=== PATIENT | female | born 1990 | race African-American/Black ===

== ENCOUNTER 2017-03-30 03:00 | Emergency (ER) | payer SELFPAY ==
--- NOTE | 2017-03-30 03:45 | ER Document Report ---
ED General - General Mode of Arrival: Medic Information source: Patient TRAVEL OUTSIDE OF THE [place] IN LAST 30 DAYS: No - HPI Onset: Just prior to arrival - Refer to HPI notes <GILBERTO LANGE - Last Filed: 03/30/17 04:46> <EDMAR GRAHAM - Last Filed: 03/30/17 06:12> - General Chief Complaint: Feet Swelling Stated Complaint: PAIN AND SWELLING IN FEET Notes: Patient is a 27-year-old female presenting to the emergency department for bilateral lower extremity swelling and difficulty ambulating. Patient states that she woke up in the that she had some swelling to her feet and ankles bilaterally and patient states she had difficulty ambulating. Patient was brought in via EMS with a wheelchair and has been drinking alcohol tonight. Patient has a history of diabetes mellitus and hypertension and is an every day smoker. Patient's PCP is [facility]. (GILBERTO LANGE) - Related Data Allergies/Adverse Reactions: No Known Allergies Allergy (Verified 03/30/17 04:48) Past Medical History - General Information source: Patient - Social History Smoking Status: Current Every Day Smoker Frequency of alcohol use: Social Family History: Hyperlipidemia, Hypertension, Malignancy, Thyroid Disfunction Patient has suicidal ideation: No Patient has homicidal ideation: No Pulmonary Medical History: Reports: Hx Asthma Psychiatric Medical History: Reports: Hx Anxiety Surgical Hx: Negative - Immunizations Immunizations up to date: Yes Hx Diphtheria, Pertussis, Tetanus Vaccination: Yes <GILBERTO LANGE - Last Filed: 03/30/17 04:46> Review of Systems - Review of Systems Constitutional: No symptoms reported EENT: No symptoms reported Cardiovascular: No symptoms reported Respiratory: No symptoms reported Gastrointestinal: No symptoms reported Genitourinary: No symptoms reported Female Genitourinary: No symptoms reported Musculoskeletal: See HPI Skin: No symptoms reported Hematologic/Lymphatic: No symptoms reported Neurological/Psychological: No symptoms reported -: Yes All other systems reviewed and negative <GILBERTO LANGE - Last Filed: 03/30/17 04:46> Physical Exam - Vital signs Interpretation: Normal <GILBERTO LANGE - Last Filed: 03/30/17 04:46> <EDMAR GRAHAM - Last Filed: 03/30/17 06:12> - Vital signs Vitals: Temp Pulse Resp BP Pulse Ox 98.4 F 74 20 133/80 H 99 03/30/17 03:17 03/30/17 03:17 03/30/17 03:17 03/30/17 03:17 03/30/17 03:17 - Notes Notes: GENERAL: Alert, interacts well, intoxicated. No acute distress. HEAD: Normocephalic, atraumatic. EYES: Appear normal. Pupils equal, round, and reactive to light. ENT: Moist mucus membranes, tongue midline. NECK: Full range of motion. Supple. Trachea midline. LUNGS: Clear to auscultation bilaterally, no wheezes, rales, or rhonchi. No respiratory distress. HEART: Regular rate and rhythm. No murmurs, gallops, or rubs. ABDOMEN: Soft, non-tender. Non-distended. Normal bowel sounds. EXTREMITIES: Moves all 4 extremities spontaneously. Normal strength. Peripheral edema bilaterally, pitting edema from the anterior tibial surface extending to the knee bilaterally but more so on the left than the right. NEUROLOGICAL: Alert and oriented x3. Normal speech. No focal neurological deficits. GSC 15. PSYCH: Normal affect, normal mood. SKIN: Warm, dry, normal turgor. No rashes or lesions noted. (GILBERTO LANGE) Course - Laboratory Result Diagrams: 03/30/17 04:20 03/30/17 04:20 <GILBERTO LANGE - Last Filed: 03/30/17 04:46> - Laboratory Result Diagrams: 03/30/17 04:20 03/30/17 04:20 <EDMAR GRAHAM - Last Filed: 03/30/17 06:12> - Vital Signs Vital signs: Temp Pulse Resp BP Pulse Ox 98.4 F 74 20 133/80 H 99 03/30/17 03:17 03/30/17 03:17 03/30/17 03:17 03/30/17 03:17 03/30/17 03:17 - Laboratory Laboratory results interpreted by me: 03/30/17 03/30/17 04:20 04:20 Hgb 11.9 L Hct 35.3 L RDW 15.6 H Chloride 109 H BUN 6 L Albumin 3.4 L Discharge <GILBERTO LANGE - Last Filed: 03/30/17 04:46> <EDMAR GRAHAM - Last Filed: 03/30/17 06:12> - Discharge Clinical Impression: Peripheral edema Condition: Stable Disposition: HOME, SELF-CARE Additional Instructions: Edema, Peripheral: You have swelling in your legs. This is called peripheral edema. It can be caused by "leaky capillaries," inflammation, disease of the leg veins, or excess salt and water in your body. Edema may be a sign of heart, kidney, or liver disease. A medical evaluation can determine if there is a serious underlying cause for your edema. Avoid prolonged standing. If you must sit for a long time, occasionally get up and walk around or elevate your legs. Support stockings can be helpful in limiting swelling. Often diuretic or water pills are used to remove excess salt and water from your body. Call the doctor or return if you develop increased swelling, pain, or redness, shortness of breath, chest pain, or any other significant change. TAKE THE MEDICATION PRESCRIBED. INCREASE POTASSIUM IN YOUR DIET WHILE TAKING THE FLUID PILLS. REDUCE SALT AND SODIUM IN YOUR DIET. ELEVATE YOUR FEET ALL THE TIME. FOLLOW UP WITH YOUR DOCTOR NEXT WEEK FOR RECHECK. RETURN TO THE EMERGENCY ROOM IF ANY NEW OR WORSENING SYMPTOMS. Prescriptions: Hydrochlorothiazide 25 mg PO DAILY #5 tablet Scribe Attestation: 03/30/17 06:11 I personally performed the services described in the documentation, reviewed and edited the documentation which was dictated to the scribe in my presence, and it accurately records my words and actions. (EDMAR GRAHAM) Scribe Documentation - Scribe Written by Trevor:: Trevor Amaro, 03/30/2017 4:50 acting as scribe for :: Danika <GILBERTO LANGE - Last Filed: 03/30/17 04:46>
[2017-03-30 04:36] LABS: ABSOLUTE EOSINOPHILS # (AUTO) 0.2 10^3/uL (0.0-0.6); ABSOLUTE LYMPHOCYTES (AUTO) 2.4 10^3/uL (0.5-4.7); ABSOLUTE MONOCYTES (AUTO) 0.5 10^3/uL (0.1-1.4); BASOPHILS % (AUTO) 0.8 % (0-2); EOSINOPHILS % (AUTO) 3.1 % (0-6); HEMATOCRIT 35.3 % (36.0-47.0); HEMOGLOBIN 11.9 g/dL (12.0-15.5); HGB HCT DIFFERENCE 0.4; LYMPHOCYTES % (AUTO) 38.7 % (13-45); MEAN CORPUSCULAR HEMOGLOBIN 29.5 pg (27.0-33.4); MEAN CORPUSCULAR HGB CONC 33.8 g/dL (32.0-36.0); MEAN CORPUSCULAR VOLUME 87 fl (80-97); MONOCYTES % (AUTO) 8.6 % (3-13); RED BLOOD COUNT 4.03 10^6/uL (3.72-5.28); RED CELL DISTRIBUTION WIDTH 15.6 % (11.5-14.0); SEGMENTED NEUTROPHILS % (AUTO) 48.8 % (42-78); WHITE BLOOD COUNT 6.1 10^3/uL (4.0-10.5)
[2017-03-30 04:49] LABS: ALANINE AMINOTRANSFERASE 32 U/L (9-52); ALBUMIN 3.4 g/dL (3.5-5.0); ALCOHOL 53 mg/dL (NONE DETECTED); ALKALINE PHOSPHATASE 50 U/L (38-126); ANION GAP 8 (5-19); ASPARTATE AMINO TRANSFERASE 24 U/L (14-36); BILIRUBIN,DIRECT 0.3 mg/dL (0.0-0.4); BILIRUBIN,TOTAL 0.3 mg/dL (0.2-1.3); BLOOD UREA NITROGEN 6 mg/dL (7-20); CALCIUM 8.4 mg/dL (8.4-10.2); CARBON DIOXIDE 24 mmol/L (22-30); CHLORIDE 109 mmol/L (98-107); CREATININE RESULT 0.73 mg/dL (0.52-1.25); GLUCOSE 86 mg/dL (75-110); POTASSIUM 3.6 mmol/L (3.6-5.0); SODIUM 140.6 mmol/L (137-145); TOTAL PROTEIN 6.6 g/dL (6.3-8.2)
[2017-03-30 05:07] LABS: APPEARANCE,URINE CLEAR; BILIRUBIN,URINE NEGATIVE (NEGATIVE); GLUCOSE, URINE NEGATIVE (NEGATIVE); KETONES,URINE NEGATIVE (NEGATIVE); LEUKOCYTE ESTERASE,URINE NEGATIVE (NEGATIVE); NITRITE,URINE NEGATIVE (NEGATIVE); PROTEIN,URINE NEGATIVE (NEGATIVE); URINE SPECIFIC GRAVITY 1.008; UROBILINOGEN,URINE NEGATIVE mg/dL (<2.0)
[2017-03-30 05:20] LABS: URINE BARBITURATES SCREEN NEGATIVE; URINE METHADONE SCREEN NEGATIVE; URINE OPIATES LOW NEGATIVE; URINE PHENCYCLIDINE SCREEN NEGATIVE
[2017-03-30] MEDS ORDERED: HYDROCHLOROTHIAZIDE 25 MG TABLET PO ONE (06:06)
[2017-03-30] MEDS ORDERED: POTASSIUM CHLORIDE 10 MEQ TABLET.SA PO ONE (06:07)
[2017-03-30 06:29] VITALS: BP 130/85
== END 2017-03-30 06:25 | disposition home or self-care (01) ==
LOC: ER 03:00
DX: R60.0 Localized edema (principal); R26.2 Difficulty in walking, not elsewhere classified; E11.9 Type 2 diabetes mellitus without complications; I10 Essential (primary) hypertension; F17.200 Nicotine dependence, unspecified, uncomplicated
CPT/HCPCS: 36415; 80053; 80307; 81001; 81025; 83735; 85025; 85379; 99284

== ENCOUNTER 2018-02-11 01:31 | Emergency (ER) | payer SELFPAY ==
[2018-02-11 01:59] VITALS: BP 107/66
--- NOTE | 2018-02-11 02:21 | ER Document Report ---
ED GI/ - General Chief Complaint: Abdominal Pain Stated Complaint: ABDOMINAL PAIN Time Seen by Provider: 02/11/18 02:08 Notes: Patient is a 28-year-old female comes emergency department for chief complaint of lower abdominal pain, she states pain started 3 days ago, it is intermittent , she feels a sharp pain that radiates up from her lower up towards her mid abdomen. She denies nausea or vomiting, fever or chills, reports a normal bowel movement within the past 24 hours. She denies vaginal bleeding or discharge, dysuria, flank pain. LMP within the past month. Denies any daily medications or medical problems. TRAVEL OUTSIDE OF THE [place] IN LAST 30 DAYS: No - Related Data Allergies/Adverse Reactions: No Known Allergies Allergy (Verified 03/30/17 04:48) Past Medical History - General Information source: Patient - Social History Smoking Status: Never Smoker Frequency of alcohol use: None Drug Abuse: None Lives with: Family Family History: Hyperlipidemia, Hypertension, Malignancy, Thyroid Disfunction - Past Medical History Cardiac Medical History: Denies: Hx Hypertension Pulmonary Medical History: Reports: Hx Asthma Neurological Medical History: Denies: Hx Cerebrovascular Accident Endocrine Medical History: Denies: Hx Diabetes Mellitus Type 2 Renal/ Medical History: Denies: Hx Peritoneal Dialysis Psychiatric Medical History: Reports: Hx Anxiety Surgical Hx: Negative - Immunizations Immunizations up to date: Yes Hx Diphtheria, Pertussis, Tetanus Vaccination: Yes Review of Systems - Review of Systems Constitutional: No symptoms reported EENT: No symptoms reported Cardiovascular: No symptoms reported Respiratory: No symptoms reported Gastrointestinal: See HPI Genitourinary: See HPI Female Genitourinary: See HPI Musculoskeletal: No symptoms reported Skin: No symptoms reported Hematologic/Lymphatic: No symptoms reported Neurological/Psychological: No symptoms reported Physical Exam - Vital signs Vitals: Temp Pulse Resp BP Pulse Ox 98.2 F 86 20 107/66 97 02/11/18 01:58 02/11/18 01:58 02/11/18 01:58 02/11/18 01:58 02/11/18 01:58 - Notes Notes: GENERAL: Alert, interacts well. No acute distress. HEAD: Normocephalic, atraumatic. EYES: Pupils equal, round, and reactive to light. Extraocular movements intact. ENT: Oral mucosa moist, tongue midline. NECK: Full range of motion. Supple. Trachea midline. LUNGS: Clear to auscultation bilaterally, no wheezes, rales, or rhonchi. No respiratory distress. HEART: Regular rate and rhythm. No murmur ABDOMEN: Minimal generalized tenderness in the lower, pelvic area, and up to the mid abdomen. No rigidity or guarding. Questionable mild distention. Bowel sounds present in all 4 quadrants. GENITOURINARY: Normal cervix, normal external exam, unremarkable vaginal exam with no obvious discharge or bleeding. No cervical motion tenderness. Exam performed with Roxanna PCT at bedside. EXTREMITIES: Moves all 4 extremities spontaneously. No edema, normal radial and dorsalis pedis pulses bilaterally. No cyanosis. BACK: no cervical, thoracic, lumbar midline tenderness. No saddle anesthesia, normal distal neurovascular exam. NEUROLOGICAL: Alert and oriented x3. Normal speech. [cranial nerves II through XII grossly intact]. PSYCH: Normal affect, normal mood. SKIN: Warm, dry, normal turgor. No rashes or lesions noted. Course - Re-evaluation Re-evalutation: Abdomen has minimal generalized tenderness which is nonspecific. No guarding. Very low suspicion of acute abdomen. CBC, chemistry unremarkable, urine unremarkable, wet mount unremarkable, pelvic exam unremarkable, gonorrhea and Chlamydia are negative. Appears to be bowel source of pain but low suspicion of perforation, infection, acute surgical abnormality. Provided with stool softeners, Bentyl, discussed follow-up, discussed return precautions, discussed gastroenterology referral. Patient states understanding and agreement with plan. - Vital Signs Vital signs: Temp Pulse Resp BP Pulse Ox 98.2 F 86 20 107/66 97 02/11/18 01:58 02/11/18 01:58 02/11/18 01:58 02/11/18 01:58 02/11/18 01:58 - Laboratory Result Diagrams: 02/11/18 02:24 02/11/18 02:24 Laboratory results interpreted by me: 02/11/18 02/11/18 02/11/18 02:24 02:24 03:18 RDW 15.6 H Sodium 146.7 H Chloride 110 H Urine Urobilinogen 4.0 H Discharge - Discharge Clinical Impression: Lower abdominal pain Condition: Stable Disposition: HOME, SELF-CARE Additional Instructions: Your workup does not show any concerning abnormalities. I suspect your pain is coming from your bowel, I recommend that you take the Bentyl for the symptoms as prescribed, take the Colace stool softener at least for the next several days , improve your hydration, increase fiber in your diet. Follow-up with primary care, follow-up with gastroenterology referral if you continue to have ongoing abdominal pains. Return to the emergency department for any concerning symptoms including vomiting, severe pain, fever, or any other concerning or worsening symptoms. Prescriptions: Dicyclomine HCl [Bentyl 20 mg Tablet] 20 mg PO QID #20 tablet Docusate Sodium [Colace 100 mg Capsule] 100 mg PO DAILY #30 capsule Forms: Return to Work Referrals: BERTIN BIRCH MD [ACTIVE STAFF] - Follow up as needed
[2018-02-11 02:36] LABS: ABSOLUTE EOSINOPHILS # (AUTO) 0.1 10^3/uL (0.0-0.6); ABSOLUTE LYMPHOCYTES (AUTO) 2.7 10^3/uL (0.5-4.7); ABSOLUTE MONOCYTES (AUTO) 0.5 10^3/uL (0.1-1.4); ABSOLUTE NEUT (AUTO) 3.9 10^3/uL (1.7-8.2); BASOPHILS % (AUTO) 0.4 % (0-2); EOSINOPHILS % (AUTO) 1.4 % (0-6); HEMATOCRIT 37.6 % (36.0-47.0); HEMOGLOBIN 12.4 g/dL (12.0-15.5); MEAN CORPUSCULAR HEMOGLOBIN 28.5 pg (27.0-33.4); MEAN CORPUSCULAR VOLUME 86 fl (80-97); MONOCYTES % (AUTO) 7.5 % (3-13); PLATELET COUNT 203 10^3/uL (150-450); RED BLOOD COUNT 4.36 10^6/uL (3.72-5.28); RED CELL DISTRIBUTION WIDTH 15.6 % (11.5-14.0); SEGMENTED NEUTROPHILS % (AUTO) 53.7 % (42-78); TOTAL CELLS COUNTED % (AUTO) 100 %; WHITE BLOOD COUNT 7.2 10^3/uL (4.0-10.5)
[2018-02-11 03:27] LABS: RBCS (WET MOUNT) RARE RBCS SEEN; T.VAGINALIS (WET MOUNT) NO TRICHOMONAS SEEN; WBCS (WET MOUNT) FEW WBCS SEEN; YEAST (WET MOUNT) NO YEAST SEEN
[2018-02-11 03:33] LABS: APPEARANCE,URINE CLEAR; BILIRUBIN,URINE NEGATIVE (NEGATIVE); COLOR,URINE YELLOW; GLUCOSE, URINE NEGATIVE (NEGATIVE); KETONES,URINE NEGATIVE (NEGATIVE); LEUKOCYTE ESTERASE,URINE NEGATIVE (NEGATIVE); NITRITE,URINE NEGATIVE (NEGATIVE); PROTEIN,URINE NEGATIVE (NEGATIVE); URINE SPECIFIC GRAVITY 1.024
[2018-02-11 03:54] LABS: ANION GAP 13 (5-19); BLOOD UREA NITROGEN 7 mg/dL (7-20); CALCIUM 8.9 mg/dL (8.4-10.2); CARBON DIOXIDE 24 mmol/L (22-30); CHLORIDE 110 mmol/L (98-107); GLUCOSE 84 mg/dL (75-110); POTASSIUM 3.8 mmol/L (3.6-5.0); SODIUM 146.7 mmol/L (137-145)
[2018-02-11 04:48] LABS: CHLAM PCR NOT DETECTED (NOT DETECT); GON PCR NOT DETECTED (NOT DETECT)
== END 2018-02-11 04:21 | disposition home or self-care (01) ==
LOC: ER 01:31
DX: R10.30 Lower abdominal pain, unspecified (principal); R10.9 Unspecified abdominal pain; R10.2 Pelvic and perineal pain; J45.909 Unspecified asthma, uncomplicated
CPT/HCPCS: 36415; 80048; 81001; 81025; 85025; 87210; 87491; 87591; 99284

== ENCOUNTER 2018-06-15 09:00 | Emergency (ER) | payer OTHER ==
[2018-06-15] MEDS ORDERED: IBUPROFEN 600 MG TABLET PO ONE (09:31)
--- NOTE | 2018-06-15 09:32 | ER Document Report ---
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 She started this month but on Sunday both of her arms started hurting over the biceps and dorsal forearms. She used a wrist bandage on her right arm yesterday and when she got off work her right hand was swollen. It is not swollen now. She does not take any hormones, no history of DVT. She wanted to know if she pulled something or got something out of place from the manual labor. The arm pain is worse this with movement and Motrin helps relieve it. Exacerbated by: Movement Relieved by: Denies - ROS ROS below otherwise negative: Yes Systems Reviewed and Negative: Yes All other systems reviewed and negative Past Medical History - General Information source: Patient - Social History Smoking Status: Current Every Day Smoker Frequency of alcohol use: None Drug Abuse: None Lives with: Family Family History: Hyperlipidemia, Hypertension, Malignancy, Thyroid Disfunction - Past Medical History Cardiac Medical History: Reports: Hx Hypertension Pulmonary Medical History: Reports: Hx Asthma Psychiatric Medical History: Reports: Hx Anxiety Surgical Hx: Negative - Immunizations Immunizations up to date: Yes Hx Diphtheria, Pertussis, Tetanus Vaccination: Yes Vertical Provider Document - CONSTITUTIONAL Agree With Documented VS: Yes Exam Limitations: No Limitations General Appearance: No Apparent Distress - INFECTION CONTROL TRAVEL OUTSIDE OF THE [place] IN LAST 30 DAYS: No - NECK Neck: Supple - MUSCULOSKELETAL/EXTREMETIES Musculoskeletal/Extremeties: MAEW, FROM, Tender - Dorsal forearm muscles and biceps - NEURO Level of Consciousness: Awake Motor/Sensory: No Motor Deficit, No Sensory Deficit Notes: 2+ radial pulses, no swelling either arm. Not hot or red. no rash Course - Re-evaluation Re-evalutation: 06/15/18 11:19 CPK is mildly elevated, no evidence of rhabdomyolysis, sed rate is mildly elevated at 29. Other lab work is normal I will treat her myalgias and muscle soreness with Motrin and plenty of fluids. - Vital Signs Vital signs: Temp Pulse Resp BP Pulse Ox 98.3 F 81 14 129/71 H 98 06/15/18 09:03 06/15/18 09:03 06/15/18 09:03 06/15/18 09:03 06/15/18 09:03 - Laboratory Result Diagrams: 06/15/18 09:49 06/15/18 09:49 Discharge - Discharge Clinical Impression: bilateral arm myalgia Condition: Good Disposition: HOME, SELF-CARE Instructions: Anti-Inflammatory Medication ([facility]), Muscle Strain ([facility]), Myalagia (Muscle Pain) ([facility]) Additional Instructions: warm compress to sore muscles copy of labs given to you drink plenty of water when you are working to stay hydrated motrin(ibuprofen) for pain see your doctor for follow up return to ER if worsened symptoms Prescriptions: Ibuprofen [Motrin 600 mg Tablet] 600 mg PO Q8HP PRN #30 tablet PRN Reason: Referrals: ARTEMIO ALANIS MD [Primary Care Provider] - 06/17/18
[2018-06-15 10:05] LABS: ABSOLUTE BASOPHILS # (AUTO) 0.1 10^3/uL (0.0-0.2); ABSOLUTE EOSINOPHILS # (AUTO) 0.3 10^3/uL (0.0-0.6); ABSOLUTE LYMPHOCYTES (AUTO) 1.7 10^3/uL (0.5-4.7); ABSOLUTE MONOCYTES (AUTO) 0.4 10^3/uL (0.1-1.4); ABSOLUTE NEUT (AUTO) 3.1 10^3/uL (1.7-8.2); BASOPHILS % (AUTO) 0.9 % (0-2); EOSINOPHILS % (AUTO) 4.8 % (0-6); HEMATOCRIT 37.4 % (36.0-47.0); HEMOGLOBIN 12.4 g/dL (12.0-15.5); MEAN CORPUSCULAR HEMOGLOBIN 28.5 pg (27.0-33.4); MEAN CORPUSCULAR HGB CONC 33.1 g/dL (32.0-36.0); MEAN CORPUSCULAR VOLUME 86 fl (80-97); MONOCYTES % (AUTO) 8.1 % (3-13); PLATELET COUNT 236 10^3/uL (150-450); RED BLOOD COUNT 4.33 10^6/uL (3.72-5.28); RED CELL DISTRIBUTION WIDTH 14.7 % (11.5-14.0); SEGMENTED NEUTROPHILS % (AUTO) 55.2 % (42-78); TOTAL CELLS COUNTED % (AUTO) 100 %; WHITE BLOOD COUNT 5.5 10^3/uL (4.0-10.5)
[2018-06-15 10:17] LABS: ALANINE AMINOTRANSFERASE 21 U/L (9-52); ALBUMIN 3.7 g/dL (3.5-5.0); ALKALINE PHOSPHATASE 61 U/L (38-126); ANION GAP 6 (5-19); ASPARTATE AMINO TRANSFERASE 23 U/L (14-36); BILIRUBIN,DIRECT 0.1 mg/dL (0.0-0.4); BILIRUBIN,TOTAL 0.4 mg/dL (0.2-1.3); BLOOD UREA NITROGEN 7 mg/dL (7-20); CALCIUM 9.6 mg/dL (8.4-10.2); CARBON DIOXIDE 27 mmol/L (22-30); CHLORIDE 107 mmol/L (98-107); GLUCOSE 88 mg/dL (75-110); POTASSIUM 4.3 mmol/L (3.6-5.0); SODIUM 139.6 mmol/L (137-145); TOTAL PROTEIN 7.5 g/dL (6.3-8.2)
[2018-06-15 10:48] LABS: ERYTHROCYTE SEDIMENTATION RATE 29 mm/hr (0-20)
[2018-06-15 11:33] VITALS: BP 132/72
== END 2018-06-15 11:25 | disposition home or self-care (01) ==
LOC: ER 09:00
DX: M79.602 Pain in left arm (principal); M79.601 Pain in right arm; M79.10 Myalgia, unspecified site; F17.200 Nicotine dependence, unspecified, uncomplicated
CPT/HCPCS: 36415; 80053; 82550; 85025; 85652; 99283

== ENCOUNTER 2019-01-20 19:37 | Emergency (ER) | payer SELFPAY ==
[2019-01-20 19:52] VITALS: BP 123/76
--- NOTE | 2019-01-20 21:08 | ER Document Report ---
ED Extremity Problem, Upper - General Chief Complaint: Arm Problem Stated Complaint: HAND/ARM PAIN Time Seen by Provider: 01/20/19 20:51 Primary Care Provider: [facility] [Provider Group] - Follow up as needed Mode of Arrival: Ambulatory Information source: Patient Notes: 29-year-old female presents to ED for complaint of numbness and tingling in her right hand wrist arm. She states when she woke up there was numbness and tingling and a prickly feeling. She states she is been trying to move her arm but the pain is not getting any better. She did not fall she did not injure her arm. She states it is swollen and cramping. She states that she went to work and tried to work but the pain is just continued and not getting any better. She states her last menstrual period was a month ago and she is not on any control. Will get a urine to test for UA and and get a x-ray of the shoulder and wrist. TRAVEL OUTSIDE OF THE [place] IN LAST 30 DAYS: No - HPI Patient complains to provider of: Pain, Right, Hand, Wrist, Shoulder Onset: This afternoon - When she woke up Recent injury: No Quality of pain: Cramping, Sharp, Other - Numbness and tingling Severity of pain: Severe Pain Level: 5 Associated symptoms: None Exacerbated by: Movement, Exertion Similar symptoms previously: Yes Recently seen / treated by doctor: No - Related Data Allergies/Adverse Reactions: No Known Allergies Allergy (Verified 06/15/18 09:01) Past Medical History - General Information source: Patient - Social History Smoking Status: Current Every Day Smoker Cigarette use (# per day): Yes Smoking Education Provided: Yes - 4 minutes Frequency of alcohol use: None Drug Abuse: None Lives with: Family Family History: Hyperlipidemia, Hypertension, Malignancy, Thyroid Disfunction Patient has suicidal ideation: No Patient has homicidal ideation: No - Past Medical History Cardiac Medical History: Reports: Hx Hypertension Pulmonary Medical History: Reports: Hx Asthma EENT Medical History: Reports: None Neurological Medical History: Reports: None Endocrine Medical History: Reports: None Renal/ Medical History: Reports: None Malignancy Medical History: Reports: None GI Medical History: Reports: None Musculoskeletal Medical History: Reports Hx Musculoskeletal Deformity, Reports Hx Musculoskeletal Trauma Skin Medical History: Reports None Psychiatric Medical History: Reports: Hx Anxiety Traumatic Medical History: Reports: None Infectious Medical History: Reports: None Surgical Hx: Negative Past Surgical History: Reports: None - Immunizations Immunizations up to date: Yes Hx Diphtheria, Pertussis, Tetanus Vaccination: Yes Review of Systems - Review of Systems Constitutional: No symptoms reported EENT: No symptoms reported Cardiovascular: No symptoms reported Respiratory: No symptoms reported Gastrointestinal: No symptoms reported Genitourinary: No symptoms reported Female Genitourinary: No symptoms reported Musculoskeletal: Other - Right arm pain numbness and tingling. Denies any injury no swelling noted Skin: No symptoms reported Hematologic/Lymphatic: No symptoms reported Neurological/Psychological: No symptoms reported -: Yes All other systems reviewed and negative Physical Exam - Vital signs Vitals: Temp Pulse Resp BP Pulse Ox 98.5 F 72 24 H 123/76 99 01/20/19 19:50 01/20/19 19:50 01/20/19 19:50 01/20/19 19:50 01/20/19 19:50 Interpretation: Normal - General General appearance: Appears well, Alert - HEENT Head: Normocephalic, Atraumatic Eyes: Normal Pupils: PERRL - Respiratory Respiratory status: No respiratory distress Chest status: Nontender Breath sounds: Normal Chest palpation: Normal - Cardiovascular Rhythm: Regular Heart sounds: Normal auscultation Murmur: No - Abdominal Inspection: Normal Distension: No distension Bowel sounds: Normal Tenderness: Nontender Organomegaly: No organomegaly - Back Back: Normal, Nontender - Extremities General upper extremity: Normal inspection, Normal color, Normal ROM, Normal temperature General lower extremity: Normal inspection, Nontender, Normal color, Normal ROM, Normal temperature, Normal weight bearing. No: Alberto's sign Shoulder: Tender Arm: Tender Elbow: Tender. No: Abrasion, Deformity, Dislocation, Ecchymosis, Instability, Joint effusion, Limited ROM, Swollen bursa Forearm: Tender. No: Abrasion, Deformity, Ecchymosis, Instability, Laceration Wrist: Tender. No: Abrasion, Axial load of thumb pain, Deformity, Dislocation, Ecchymosis, Laceration, Limited ROM, Navicular tenderness Hand: Tender, No evidence of human bite, No evidence of FB. No: Abrasion, Deformity, Dislocation, Ecchymosis, Instability, Laceration, Nail injury, Swelling, Tendon deficit - Neurological Neuro grossly intact: Yes Cognition: Normal Orientation: AAOx4 [place] Coma Scale Eye Opening: Spontaneous [place] Coma Scale Verbal: Oriented [place] Coma Scale Motor: Obeys Commands [place] Coma Scale Total: 15 Speech: Normal Motor strength normal: LUE, RUE, LLE, RLE Sensory: Normal - Psychological Associated symptoms: Normal affect, Normal mood - Skin Skin Temperature: Warm Skin Moisture: Dry Skin Color: Normal Course - Re-evaluation Re-evalutation: 01/20/19 22:56 Lab results and x-ray results discussed with patient and written reports given to patient to follow-up with primary doctor. There is no obvious cause for her arm pain. Patient was instructed that if she continues to have pain follow-up with orthopedics. Cock-up splint was provided for helping with her pain to the wrist. Patient has full range of motion to all joints of this extremity. There is no swelling no bruising no rash noted to this arm. Patient was tested for urine and due to her request for ibuprofen. She was . She has been informed she needs to stop smoking using alcohol and she cannot use ibuprofen while she is . Patient was instructed to please be careful what she takes while . Patient verbalized understanding and agreement with treatment plan and patient was discharged home. - Vital Signs Vital signs: Temp Pulse Resp BP Pulse Ox 98.5 F 72 24 H 123/76 99 01/20/19 19:50 01/20/19 19:50 01/20/19 19:50 01/20/19 19:50 01/20/19 19:50 - Laboratory Laboratory results interpreted by me: 01/20/19 21:52 Urine Ketones 80 H Urine HCG, Qual POSITIVE H - Diagnostic Test Radiology reviewed: Image reviewed, Reports reviewed Procedures - Immobilization Right Wrist Time completed: 22:35 Immobilizer type: Cock-up Performed by: PCT Post-Proc Neuro Vasc Exam: Normal Alignment checked and good: Yes Discharge - Discharge Clinical Impression: Arm pain, right Condition: Stable Disposition: HOME, SELF-CARE Instructions: Family Physicians / Practices Additional Instructions: Arm Pain, Nonspecific We did not find an obvious cause for your arm pain. There's no sign of blood clot, infection, heart attack, stroke, or other serious disease. Most of the time, this type of pain goes away. If it does, no further evaluation is necessary. If pain continues or keeps coming back, we can do further testing. Possible causes of vague arm pain include muscle or joint inflammation, disc disease in the neck, pressure on the nerves and artery in the chest or armpit ("thoracic outlet syndrome"), or heart disease. Rest the arm. Pain can be eased with an antiinflammatory pain medicine such as ibuprofen. If the pain involves a small area, a heating pad might help. Call the doctor or return if the arm becomes swollen, weak, discolored, or increasingly painful, or if you develop any other significant change in your health. You have been treated with a cock-up splint to help with the pain to your wrist. The pain to your arm and shoulder there is no obvious reason for. You will need to follow-up with her primary doctor and orthopedics if you continue having pain. You are . care is best started as early in as possible. If you're unsure about continuing this , you should discuss this with your physician or with upset operator at [facility]. You should take only medications approved by your physician. Acetaminophen can safely be taken for minor pains. As a rule, medication for chronic conditions such as asthma or seizures can safely be continued. You should discuss with the physician every medicine you take. Any regular exercise program can be continued. Talk to your physician, however, before engaging in competitive or demanding sports. Alcohol, smoking, and "street drugs" are dangerous to your baby. Cocaine is especially dangerous. Don't use any illicit drugs! FOLLOW-UP CARE: If you have been referred to a physician for follow-up care, call the physicians office for an appointment as you were instructed or within the next two days. If you experience worsening or a significant change in your symptoms, notify the physician immediately or return to the Emergency Department at any time for re-evaluation. Forms: Smoking Cessation Education, Return to Work Referrals: [facility] ([facility] [Provider Group] - Follow up as needed
--- NOTE | 2019-01-20 21:43 | RADIOLOGY REPORT (SQ) ---
EXAM DESCRIPTION: XR SHOULDER 2 OR MORE VIEWS COMPLETED DATE/TME: 01/20/2019 21:03 CLINICAL HISTORY: 29 years, Female, pain with movement COMPARISON: None. NUMBER OF VIEWS: Three TECHNIQUE: Internal/external and transscapular Y projections of the right shoulder were obtained. LIMITATIONS: None. FINDINGS: Visualized osseous structures are normal in appearance. Joint spaces are well-maintained. No acute fracture or dislocation is evident. IMPRESSION: No acute osseous anomaly. copyright 2010 [employer]- All Rights Reserved
--- NOTE | 2019-01-20 21:49 | RADIOLOGY REPORT (SQ) ---
3 VIEWS OF RIGHT WRIST HISTORY: Wrist pain. COMPARISON: None. FINDINGS: No acute fracture or dislocation. The joint spaces are preserved. The surrounding soft tissues are swollen. No radiopaque foreign body is identified. IMPRESSION: No acute fracture or malalignment.
[2019-01-20 22:09] LABS: APPEARANCE,URINE CLEAR; BILIRUBIN,URINE NEGATIVE (NEGATIVE); COLOR,URINE YELLOW; GLUCOSE, URINE NEGATIVE (NEGATIVE); KETONES,URINE 80 mg/dL (NEGATIVE); LEUKOCYTE ESTERASE,URINE NEGATIVE (NEGATIVE); NITRITE,URINE NEGATIVE (NEGATIVE); PROTEIN,URINE NEGATIVE (NEGATIVE); URINE SPECIFIC GRAVITY 1.015; UROBILINOGEN,URINE NEGATIVE mg/dL (<2.0)
[2019-01-20] MEDS ORDERED: ACETAMINOPHEN 325 MG TABLET PO ONE (22:27)
== END 2019-01-20 23:04 | disposition home or self-care (01) ==
LOC: ER 19:37
DX: M79.604 Pain in right leg (principal); M79.641 Pain in right hand; M25.531 Pain in right wrist; M25.511 Pain in right shoulder; R20.0 Anesthesia of skin; F17.210 Nicotine dependence, cigarettes, uncomplicated; I10 Essential (primary) hypertension; J45.909 Unspecified asthma, uncomplicated
CPT/HCPCS: 99283; 81025; 81001; 73030; 73110; L3908

== ENCOUNTER → 2019-02-05 | Outpatient (CLI) | payer SELFPAY ==
--- NOTE | 2019-02-05 14:50 | RADIOLOGY REPORT (SQ) ---
EXAM DESCRIPTION: U/S [id number] TRNABD 1GES W/ODOP COMPLETED DATE/TIME: 02/05/2019 2:20 pm REASON FOR STUDY: ENCT FOR SUPERVISION OF NORMAL FIRST , 1ST TRIMESTER (Z34.01) Z34.01 ENC NTR FOR SUPRVSN OF NORMAL FIRST PREG, FIRST TRIMES COMPARISON: None. TECHNIQUE: Transabdominal static and realtime grayscale images acquired of the pelvis. Additional se lected spectral and color Doppler images recorded. All images stored on PACs. bHCG: Not available. CLINICAL DATES: LMP unknown. LIMITATIONS: None. FINDINGS: FETUS: Single Living intrauterine . ULTRASOUND EGA: 7 weeks 1 day ULTRASOUND IRAIDA: 09/23/2019 EFW: Not applicable less than 20 weeks. CRL: 1.08 cm FHR: 158 beats per minute. SURVEY: Too early to assess. AMNIOTIC FLUID: Adequate amount. PLACENTA: Not yet developed due to early gestation. SUBCHORIONIC BLEED: No SIZE OF BLEED: Not applicable. UTERUS: No masses. No anomalies. CERVICAL LENGTH: 2.2 cm. Closed. RIGHT ADNEXA: Normal ovary with normal vascular flow. 3.4 x 2.7 x 2.9 cm. There is a 22 mm corpus l uteum. No adnexal free fluid. No adnexal masses. LEFT ADNEXA: Ovary not seen. No adnexal free fluid. No adnexal masses. FREE FLUID: None. OTHER: No other significant finding. IMPRESSION: LIVING INTRAUTERINE . EGA 7 weeks 1 day Trimester of : First - 0 to 13 weeks. TECHNICAL DOCUMENTATION: JOB ID: [id number]- All Rights Reserved rev Reading location - IP/workstation name: [email or web address]
== END ==
LOC: RAD 13:44
PROVIDERS: ATTEND Midwife
DX: Z34.01 Encounter for supervision of normal first pregnancy, first trimester (principal)
CPT/HCPCS: 76801

== ENCOUNTER 2019-04-17 10:37 | Emergency (ER) | payer MEDICAID ==
[2019-04-17 10:41] VITALS: BP 123/68
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
[2019-04-17 11:59] LABS: APPEARANCE,URINE CLEAR; BILIRUBIN,URINE NEGATIVE (NEGATIVE); COLOR,URINE YELLOW; GLUCOSE, URINE NEGATIVE (NEGATIVE); KETONES,URINE 20 mg/dL (NEGATIVE); LEUKOCYTE ESTERASE,URINE NEGATIVE (NEGATIVE); NITRITE,URINE NEGATIVE (NEGATIVE); PROTEIN,URINE 30 mg/dL (NEGATIVE); URINE SPECIFIC GRAVITY 1.024
[2019-04-17 12:07] LABS: ABSOLUTE EOSINOPHILS # (AUTO) 0.3 10^3/uL (0.0-0.6); ABSOLUTE LYMPHOCYTES (AUTO) 2.2 10^3/uL (0.5-4.7); ABSOLUTE MONOCYTES (AUTO) 0.5 10^3/uL (0.1-1.4); ABSOLUTE NEUT (AUTO) 5.1 10^3/uL (1.7-8.2); BASOPHILS % (AUTO) 0.4 % (0-2); EOSINOPHILS % (AUTO) 3.3 % (0-6); HEMATOCRIT 36.4 % (36.0-47.0); HEMOGLOBIN 12.2 g/dL (12.0-15.5); LYMPHOCYTES % (AUTO) 27.2 % (13-45); MEAN CORPUSCULAR HGB CONC 33.6 g/dL (32.0-36.0); MEAN CORPUSCULAR VOLUME 86 fl (80-97); MONOCYTES % (AUTO) 6.7 % (3-13); PLATELET COUNT 244 10^3/uL (150-450); RED BLOOD COUNT 4.23 10^6/uL (3.72-5.28); RED CELL DISTRIBUTION WIDTH 14.1 % (11.5-14.0); SEGMENTED NEUTROPHILS % (AUTO) 62.4 % (42-78); TOTAL CELLS COUNTED % (AUTO) 100 %; WHITE BLOOD COUNT 8.1 10^3/uL (4.0-10.5)
[2019-04-17 12:10] LABS: ALBUMIN 3.5 g/dL (3.5-5.0); ALKALINE PHOSPHATASE 54 U/L (38-126); ANION GAP 8 (5-19); ASPARTATE AMINO TRANSFERASE 28 U/L (14-36); BILIRUBIN,DIRECT 0.2 mg/dL (0.0-0.4); BILIRUBIN,TOTAL 0.4 mg/dL (0.2-1.3); BLOOD UREA NITROGEN 5 mg/dL (7-20); CALCIUM 8.9 mg/dL (8.4-10.2); CARBON DIOXIDE 24 mmol/L (22-30); CHLORIDE 106 mmol/L (98-107); GLUCOSE 80 mg/dL (75-110); POTASSIUM 3.6 mmol/L (3.6-5.0)
[2019-04-17] MEDS ORDERED: ONDANSETRON HCL INJ/PF 4 MG/2 ML SDV IV ONE (14:09)
[2019-04-17] MEDS ORDERED: MORPHINE SULFATE 10 MG/ML INJ IV ONE (14:09)
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
== END 2019-04-17 14:32 | disposition left against medical advice (07) ==
LOC: ER 10:37
DX: Z87.891 Personal history of nicotine dependence (principal); O26.891 Other specified pregnancy related conditions, first trimester; R10.31 Right lower quadrant pain; Z3A.13 13 weeks gestation of pregnancy; O16.1 Unspecified maternal hypertension, first trimester; O99.511 Diseases of the respiratory system complicating pregnancy, first trimester; J45.909 Unspecified asthma, uncomplicated
CPT/HCPCS: 36415; 80053; 81001; 83690; 84702; 85025

== ENCOUNTER 2019-08-07 23:07 | Outpatient (CLI) | payer MEDICAID ==
[2019-08-08 00:07] LABS: APPEARANCE,URINE CLEAR; BILIRUBIN,URINE NEGATIVE (NEGATIVE); COLOR,URINE YELLOW; GLUCOSE, URINE NEGATIVE (NEGATIVE); KETONES,URINE TRACE mg/dL (NEGATIVE); LEUKOCYTE ESTERASE,URINE NEGATIVE (NEGATIVE); NITRITE,URINE NEGATIVE (NEGATIVE); PROTEIN,URINE 30 mg/dL (NEGATIVE); URINE SPECIFIC GRAVITY 1.014; UROBILINOGEN,URINE NEGATIVE mg/dL (<2.0)
[2019-08-08 00:22] LABS: URINE AMPHETAMINES SCREEN NEGATIVE; URINE BARBITURATES SCREEN NEGATIVE; URINE BENZODIAZEPINES SCREEN NEGATIVE; URINE COCAINE SCREEN NEGATIVE; URINE MARIJUANA (THC) SCREEN NEGATIVE; URINE METHADONE SCREEN NEGATIVE; URINE PHENCYCLIDINE SCREEN NEGATIVE
--- NOTE | 2019-08-08 00:30 | Non Stress Test Report ---
Non Stress Test Datetime Report Generated by CPN: 08/08/2019 00:29 DEMOGRAPHIC EGA NST: 33.2 MONITORING Monitor Explained: Monitor Explained; Test Explained; Patient Verbalized Understanding Time on Monitor: 08/07/2019 23:30 Time off Monitor: 08/08/2019 00:15 NST Duration: 45 NST INTERVENTIONS NST Interventions: PO Hydration Physician Notified NST: Dr. Chase BABY A: [id number] BABY A Movement : Present Contraction Frequency : none FHR Baseline : 135 Accelerations : 15X15 Decelerations : None Variability : Moderate 6-25bpm NST Review: Meets Criteria for Reactive NST NST Review and Verified By : , RN NST Results: Reactive NST REPORT Report Trigger: Send Report
== END 2019-08-08 00:24 | disposition home or self-care (01) ==
LOC: LC 23:07
PROVIDERS: ATTEND Obstetrics & Gynecology
PROC: 4A1HXCZ Monitoring of Products of Conception, Cardiac Rate, External Approach (ICD-10-PCS; principal; 2019-08-07)
DX: O36.8130 Decreased fetal movements, third trimester, not applicable or unspecified (principal); Z3A.33 33 weeks gestation of pregnancy
CPT/HCPCS: 59025; 80307; 81001

== ENCOUNTER 2019-08-11 11:35 | Outpatient (CLI) | payer MEDICAID ==
--- NOTE | 2019-08-11 12:30 | Non Stress Test Report ---
Non Stress Test Datetime Report Generated by CPN: 08/11/2019 12:30 DEMOGRAPHIC EGA NST: 33.6 MONITORING Monitor Explained: Monitor Explained; Test Explained; Patient Verbalized Understanding Time on Monitor: 08/11/2019 11:52 Time off Monitor: 08/11/2019 12:21 NST Duration: 29 NST INTERVENTIONS NST Interventions: PO Hydration BABY A: [id number] BABY A Movement : Present Contraction Frequency : irregular Accelerations : 15X15 Variability : Moderate 6-25bpm NST Review: Meets Criteria for Reactive NST NST Review and Verified By : TMartin,RN NST Results: Reactive NST REPORT Report Trigger: Send Report
== END 2019-08-11 12:24 | disposition home or self-care (01) ==
LOC: LC 11:35
PROVIDERS: ATTEND Obstetrics & Gynecology
PROC: 4A1HXCZ Monitoring of Products of Conception, Cardiac Rate, External Approach (ICD-10-PCS; principal; 2019-08-11)
DX: O36.5930 Maternal care for other known or suspected poor fetal growth, third trimester, not applicable or unspecified (principal); Z3A.33 33 weeks gestation of pregnancy
CPT/HCPCS: 59025; 94760

== ENCOUNTER 2019-09-19 20:04 | Inpatient (IN) | payer MEDICAID ==
[2019-09-19] MEDS ORDERED: RINGERS SOLUTION,LACTATED 300 ML IV ONE (20:18)
[2019-09-19] MEDS ORDERED: DINOPROSTONE 10 MG VAGINAL INSERT.SR PV PRN (20:18)
[2019-09-19 20:42] LABS: APPEARANCE,URINE CLEAR; BILIRUBIN,URINE NEGATIVE (NEGATIVE); COLOR,URINE YELLOW; GLUCOSE, URINE NEGATIVE (NEGATIVE); KETONES,URINE TRACE mg/dL (NEGATIVE); LEUKOCYTE ESTERASE,URINE NEGATIVE (NEGATIVE); NITRITE,URINE NEGATIVE (NEGATIVE); PROTEIN,URINE 100 mg/dL (NEGATIVE); URINE SPECIFIC GRAVITY 1.019
[2019-09-19 20:54] LABS: ABSOLUTE BASOPHILS # (AUTO) 0.1 10^3/uL (0.0-0.2); ABSOLUTE EOSINOPHILS # (AUTO) 0.1 10^3/uL (0.0-0.6); ABSOLUTE LYMPHOCYTES (AUTO) 2.2 10^3/uL (0.5-4.7); ABSOLUTE MONOCYTES (AUTO) 0.7 10^3/uL (0.1-1.4); ABSOLUTE NEUT (AUTO) 6.9 10^3/uL (1.7-8.2); BASOPHILS % (AUTO) 0.5 % (0-2); EOSINOPHILS % (AUTO) 0.8 % (0-6); HEMATOCRIT 32.6 % (36.0-47.0); MEAN CORPUSCULAR HEMOGLOBIN 26.9 pg (27.0-33.4); MEAN CORPUSCULAR HGB CONC 33.8 g/dL (32.0-36.0); MEAN CORPUSCULAR VOLUME 80 fl (80-97); MONOCYTES % (AUTO) 6.6 % (3-13); PLATELET COUNT 245 10^3/uL (150-450); SEGMENTED NEUTROPHILS % (AUTO) 70.1 % (42-78); TOTAL CELLS COUNTED % (AUTO) 100 %; WHITE BLOOD COUNT 9.9 10^3/uL (4.0-10.5)
[2019-09-19 21:10] LABS: URINE AMPHETAMINES SCREEN NEGATIVE; URINE BARBITURATES SCREEN NEGATIVE; URINE BENZODIAZEPINES SCREEN NEGATIVE; URINE COCAINE SCREEN NEGATIVE; URINE MARIJUANA (THC) SCREEN NEGATIVE; URINE METHADONE SCREEN NEGATIVE; URINE PHENCYCLIDINE SCREEN NEGATIVE
[2019-09-19] MEDS: RINGERS SOLUTION,LACTATED 1,000 ML IV PRN (21:16)
[2019-09-19] MEDS ORDERED: DINOPROSTONE 10 MG VAGINAL INSERT.SR ONE (21:21)
[2019-09-20] MEDS ORDERED: ACETAMINOPHEN 325 MG TABLET ONE (03:43)
[2019-09-20] MEDS: RINGERS SOLUTION,LACTATED 1,000 ML IV PRN (03:47)
[2019-09-20 06:40] LABS: ALBUMIN 3.2 g/dL (3.5-5.0); ALKALINE PHOSPHATASE 177 U/L (38-126); ANION GAP 10 (5-19); ASPARTATE AMINO TRANSFERASE 21 U/L (14-36); BILIRUBIN,DIRECT 0.3 mg/dL (0.0-0.4); BILIRUBIN,TOTAL 0.3 mg/dL (0.2-1.3); BLOOD UREA NITROGEN 5 mg/dL (7-20); CALCIUM 9.1 mg/dL (8.4-10.2); CARBON DIOXIDE 21 mmol/L (22-30); CHLORIDE 107 mmol/L (98-107); GLUCOSE 115 mg/dL (75-110); POTASSIUM 3.5 mmol/L (3.6-5.0)
[2019-09-20] MEDS ORDERED: NALBUPHINE HCL INJ 10 MG/1 ML AMPULE ONE (09:25)
[2019-09-20] MEDS ORDERED: PROMETHAZINE HCL INJ 25 MG/1 ML VIAL ONE (09:25)
[2019-09-20] MEDS ORDERED: NALBUPHINE HCL INJ 10 MG/1 ML AMPULE INJ ONE (09:30)
[2019-09-20] MEDS ORDERED: PROMETHAZINE HCL INJ 25 MG/1 ML VIAL IV ONE (09:30)
[2019-09-20] MEDS ORDERED: OXYTOCIN 10 UNIT/ML VIAL ONE (10:56)
[2019-09-20] MEDS ORDERED: MISOPROSTOL 0.2 MG TABLET ONE (10:56)
[2019-09-20] MEDS ORDERED: OXYTOCIN/NORMAL SALINE 20 UNIT/1,000 ML RTUINJ ONE (10:56)
[2019-09-20] MEDS ORDERED: LIDOCAINE 1% INJ-PF (10 MG/ML) 30 ML SDV ONE (10:56)
[2019-09-20] MEDS ORDERED: PROMETHAZINE HCL INJ 25 MG/1 ML VIAL IV PRN (12:23)
[2019-09-20] MEDS ORDERED: ACETAMINOPHEN WITH CODEINE #3 TABLET PO PRN (12:23)
[2019-09-20] MEDS ORDERED: PROMETHAZINE HCL 25 MG TABLET PO PRN (12:23)
[2019-09-20] MEDS ORDERED: MEASLES,MUMPS&RUBELLA VACC/PF 0.5 ML VIAL SUBCUT PRN (12:23)
[2019-09-20] MEDS ORDERED: OXYTOCIN/NORMAL SALINE 20 UNIT/1,000 ML RTUINJ IV PRN (12:23)
[2019-09-20] MEDS ORDERED: ACETAMINOPHEN 650 MG SUPP.RECT PR PRN (12:23)
[2019-09-20] MEDS ORDERED: PROMETHAZINE HCL 25 MG SUPP.RECT PR PRN (12:23)
[2019-09-20] MEDS ORDERED: DIPHENHYDRAMINE HCL 25 MG CAPSULE PO PRN (12:23)
[2019-09-20] MEDS ORDERED: MAGNESIUM HYDROXIDE SUSP 30 ML UDCUP PO PRN (12:23)
[2019-09-20] MEDS ORDERED: PSEUDOEPHEDRINE HCL 30 MG TABLET PO PRN (12:23)
[2019-09-20] MEDS ORDERED: BENZOCAINE/MENTHOL AEROSOL SPRAY 56 ML TOP PRN (12:23)
[2019-09-20] MEDS ORDERED: ZOLPIDEM TARTRATE 5 MG TABLET PO PRN (12:23)
[2019-09-20] MEDS ORDERED: DIBUCAINE 1% OINTMENT 28 GM TP PRN (12:23)
[2019-09-20] MEDS ORDERED: NA PHOS,M-B/NA PHOS,DI-BA (ADULT) 133 ML ENEMA PR PRN (12:23)
[2019-09-20] MEDS ORDERED: DIPH/PERTUSS(ACELL)/TETANUS VAC/PF 0.5 ML SYR (>=10YO) IM PRN (12:23)
[2019-09-20] MEDS ORDERED: GLYCERIN/WITCH HAZEL LEAF 1 EACH MED..WIPE TP PRN (12:23)
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
[2019-09-20] MEDS: IBUPROFEN 800 MG TABLET PO SCH ×2 (15:23→21:13)
[2019-09-20] MEDS: DOCUSATE SODIUM 100 MG CAPSULE PO SCH (17:47)
[2019-09-20] MEDS: FERROUS SULFATE 325 MG TABLET PO SCH (17:47)
[2019-09-20] MEDS: ACETAMINOPHEN WITH CODEINE #3 TABLET PO PRN (19:07)
[2019-09-20] MEDS: FAMOTIDINE 20 MG TABLET PO SCH (21:41)
[2019-09-21] MEDS: IBUPROFEN 800 MG TABLET PO SCH ×3 (05:59→21:35)
[2019-09-21 08:03] LABS: HEMATOCRIT 26.8 % (36.0-47.0); MEAN CORPUSCULAR HEMOGLOBIN 26.3 pg (27.0-33.4); MEAN CORPUSCULAR HGB CONC 33.2 g/dL (32.0-36.0); MEAN CORPUSCULAR VOLUME 79 fl (80-97); PLATELET COUNT 177 10^3/uL (150-450); RED BLOOD COUNT 3.39 10^6/uL (3.72-5.28); RED CELL DISTRIBUTION WIDTH 16.2 % (11.5-14.0); WHITE BLOOD COUNT 13.1 10^3/uL (4.0-10.5)
[2019-09-21 08:29] LABS: HEMOGLOBIN 8.9 g/dL (12.0-15.5)
[2019-09-21] MEDS: FERROUS SULFATE 325 MG TABLET PO SCH ×2 (10:11→18:59)
[2019-09-21] MEDS: DOCUSATE SODIUM 100 MG CAPSULE PO SCH ×2 (10:11→18:59)
[2019-09-21] MEDS: SENNOSIDES/DOCUSATE 8.6-50 MG 1 EACH TABLET PO SCH (10:11)
[2019-09-21] MEDS: PRENATAL VITAMIN W DHA CAPSULE PO SCH (10:11)
--- NOTE | 2019-09-21 10:11 | PDOC PROGRESS REPORT ---
Subjective-OB Progress Note for:: 09/21/19 - PP Day #1, doing well, no complaints, UOB, showered this morning, O+, Rubella immune, Bottlefeeding. S/p IOL for IUGR Physical Exam (OB) Vital Signs: Temp Pulse Resp BP Pulse Ox 97.8 F 98 20 116/70 99 09/21/19 08:03 09/21/19 08:03 09/21/19 08:03 09/21/19 08:03 09/21/19 08:03 Intake & Output 09/20/19 09/21/19 09/22/19 06:59 06:59 06:59 Intake Total 815 Balance 815 Weight 88.7 kg - General General Appearance: Appears well, Alert In distress: None - PIH/Pre-Eclampsia Clonus: Negative Headache: Absent Epigastric Pain: No Visual Changes: No - Lochia Lochia Amount: Small 10-25 ml Lochia Color: Rubra/Red - Abdomen Description: Soft Hernia Present: No Fundal Description: Firm, Midline Fundal Height: u/u - u/2 - Respiratory Respiratory Status: No respiratory distress - Abdominal Distension: No distension Tenderness: Nontender - Genitourinary Genitourinary Note: voiding - Extremities Lower extremities: Edema - 1+ - Neurological Cognition: Normal Orientation: AAOx4 - Psychological Associated symptoms: Normal affect, Normal mood - Skin Skin Temperature: Warm Skin Moisture: Dry Objective-Diagnostic Laboratory: 09/21/19 07:16 09/20/19 06:09 09/21/19 07:16 WBC 13.1 H RBC 3.39 L Hgb 8.9 L D Hct 26.8 L MCV 79 L MCH 26.3 L MCHC 33.2 RDW 16.2 H Plt Count 177 Assessment and Plan(PN) - Assessment and Plan (1) Intrauterine growth restriction affecting antepartum care of mother in third trimester Qualifiers: Fetus number: single or unspecified fetus Qualified Code(s): O36.5930 - Maternal care for other known or suspected poor growth, third trimester, not applicable or unspecified Is this a current diagnosis for this admission?: Yes (2) (normal spontaneous vaginal delivery) Is this a current diagnosis for this admission?: Yes (3) Acute blood loss anemia Is this a current diagnosis for this admission?: Yes (4) History of chronic hypertension Is this a current diagnosis for this admission?: Yes Plan:: Routine PP orders, ambulation encouraged. Watch BP - Time Spent with Patient Time with patient: Less than 15 minutes Medications reviewed and adjusted accordingly: Yes - Disposition Anticipated Discharge: Home Within: within 24 hours
[2019-09-21] MEDS: FAMOTIDINE 20 MG TABLET PO SCH ×2 (11:57→21:06)
[2019-09-22] MEDS: ACETAMINOPHEN WITH CODEINE #3 TABLET PO PRN (01:09)
[2019-09-22] MEDS: IBUPROFEN 800 MG TABLET PO SCH ×2 (05:03→13:27)
--- NOTE | 2019-09-22 09:20 | PDOC DISCHARGE SUMMARY ---
Impression - Admit/DC Date/PCP Admission Date/Primary Care Provider: 09/19/19 20:04 DILIA DELEON CNM Discharge Date: 09/22/19 - Discharge Diagnosis (1) Acute blood loss anemia Is this a current diagnosis for this admission?: Yes (2) History of chronic hypertension Is this a current diagnosis for this admission?: Yes (3) Intrauterine growth restriction affecting antepartum care of mother in third trimester Is this a current diagnosis for this admission?: Yes (4) (normal spontaneous vaginal delivery) Is this a current diagnosis for this admission?: Yes - Assessment Summary: vaginal delivery. induction due to IUGR. Normal course. doing well and ready for discharge home - Additional Information Resuscitation Status: Full Code Discharge Diet: As Tolerated Discharge Activity: Balance Activity w/Rest, Pelvic Rest, No tub bath Referrals: DILIA DELEON CNM [Primary Care Provider] - Prescriptions: Ibuprofen [Motrin 800 mg Tablet] 800 mg PO Q8 #60 tablet Vit/Dha [ Multi + Dha Capsule] 1 cap PO DAILY #30 capsule Home Medications: Vitamin [-U Multiple Vitamin Capsule] 1 cap PO DAILY 08/07/19 Ibuprofen [Motrin 800 mg Tablet] 800 mg PO Q8 #60 tablet 09/22/19 Vit/Dha [ Multi + Dha Capsule] 1 cap PO DAILY #30 capsule 09/22/19 History of Present Illiness History of Present Illness: MARTINE CHRISTIAN is a 29 year old female Physical Exam - Physical Exam Vital Signs: Temp Pulse Resp BP Pulse Ox 98.0 F 88 18 117/60 98 09/22/19 07:58 09/22/19 07:58 09/22/19 07:58 09/22/19 07:58 09/22/19 07:58 Results Laboratory Results: WBC 13.1 10^3/uL (4.0-10.5) H 09/21/19 07:16 RBC 3.39 10^6/uL (3.72-5.28) L 09/21/19 07:16 Hgb 8.9 g/dL (12.0-15.5) L D 09/21/19 07:16 Hct 26.8 % (36.0-47.0) L 09/21/19 07:16 MCV 79 fl (80-97) L 09/21/19 07:16 MCH 26.3 pg (27.0-33.4) L 09/21/19 07:16 MCHC 33.2 g/dL (32.0-36.0) 09/21/19 07:16 RDW 16.2 % (11.5-14.0) H 09/21/19 07:16 Plt Count 177 10^3/uL (150-450) 09/21/19 07:16 Lymph % (Auto) 22.0 % (13-45) 09/19/19 20:42 [place] % (Auto) 6.6 % (3-13) 09/19/19 20:42 Eos % (Auto) 0.8 % (0-6) 09/19/19 20:42 Baso % (Auto) 0.5 % (0-2) 09/19/19 20:42 Absolute Neuts (auto) 6.9 10^3/uL (1.7-8.2) 09/19/19 20:42 Absolute Lymphs (auto) 2.2 10^3/uL (0.5-4.7) 09/19/19 20:42 Absolute Monos (auto) 0.7 10^3/uL (0.1-1.4) 09/19/19 20:42 Absolute Eos (auto) 0.1 10^3/uL (0.0-0.6) 09/19/19 20:42 Absolute Basos (auto) 0.1 10^3/uL (0.0-0.2) 09/19/19 20:42 Seg Neutrophils % 70.1 % (42-78) 09/19/19 20:42 Sodium 138.1 mmol/L (137-145) 09/20/19 06:09 Potassium 3.5 mmol/L (3.6-5.0) L 09/20/19 06:09 Chloride 107 mmol/L (98-107) 09/20/19 06:09 Carbon Dioxide 21 mmol/L (22-30) L 09/20/19 06:09 Anion Gap 10 (5-19) 09/20/19 06:09 BUN 5 mg/dL (7-20) L 09/20/19 06:09 Creatinine 0.52 mg/dL (0.52-1.25) 09/20/19 06:09 Est GFR ( Amer) > 60 (>60) 09/20/19 06:09 Est GFR (MDRD) Non-Af > 60 (>60) 09/20/19 06:09 Glucose 115 mg/dL (75-110) H 09/20/19 06:09 Uric Acid 3.0 mg/dL (2.5-6.2) 09/20/19 06:09 Calcium 9.1 mg/dL (8.4-10.2) 09/20/19 06:09 Total Bilirubin 0.3 mg/dL (0.2-1.3) 09/20/19 06:09 Direct Bilirubin 0.3 mg/dL (0.0-0.4) 09/20/19 06:09 Neonat Total Bilirubin Not Reportable 09/20/19 06:09 Neonat Direct Bilirubin Not Reportable 09/20/19 06:09 Neonat Indirect Bili Not Reportable 09/20/19 06:09 AST 21 U/L (14-36) 09/20/19 06:09 ALT 13 U/L (<35) 09/20/19 06:09 Alkaline Phosphatase 177 U/L (38-126) H 09/20/19 06:09 Lactate Dehydrogenase 157 U/L (120-246) 09/20/19 06:09 Total Protein 7.0 g/dL (6.3-8.2) 09/20/19 06:09 Albumin 3.2 g/dL (3.5-5.0) L 09/20/19 06:09 Urine Color YELLOW 09/19/19 20:15 Urine Appearance CLEAR 09/19/19 20:15 Urine pH 6.0 (5.0-9.0) 09/19/19 20:15 Ur Specific [place] 1.019 09/19/19 20:15 Urine Protein 100 mg/dL (NEGATIVE) H 09/19/19 20:15 Urine Glucose (UA) NEGATIVE mg/dL (NEGATIVE) 09/19/19 20:15 Urine Ketones TRACE mg/dL (NEGATIVE) H 09/19/19 20:15 Urine Blood NEGATIVE (NEGATIVE) 09/19/19 20:15 Urine Nitrite NEGATIVE (NEGATIVE) 09/19/19 20:15 Urine Bilirubin NEGATIVE (NEGATIVE) 09/19/19 20:15 Urine Urobilinogen 4.0 mg/dL (<2.0) H 09/19/19 20:15 Ur Leukocyte Esterase NEGATIVE (NEGATIVE) 09/19/19 20:15 Urine Ascorbic Acid NEGATIVE (NEGATIVE) 09/19/19 20:15 Urine Opiates Screen NEGATIVE 09/19/19 20:15 Urine Methadone Screen NEGATIVE 09/19/19 20:15 Ur Barbiturates Screen NEGATIVE 09/19/19 20:15 Ur Phencyclidine Scrn NEGATIVE 09/19/19 20:15 Ur Amphetamines Screen NEGATIVE 09/19/19 20:15 U Benzodiazepines Scrn NEGATIVE 09/19/19 20:15 Urine Cocaine Screen NEGATIVE 09/19/19 20:15 U Marijuana (THC) Screen NEGATIVE 09/19/19 20:15 RPR NONREACTIVE (NONREACTIVE) 09/19/19 20:42 Blood Type O POSITIVE 09/19/19 20:42 Antibody Screen NEGATIVE 09/19/19 20:42 Stroke Is this a Stroke Patient?: No Acute Heart Failure - Is this a Heart Failure Patient?: No
[2019-09-22 10:30] VITALS: BP 138/68
[2019-09-22] MEDS: FERROUS SULFATE 325 MG TABLET PO SCH ×2 (10:55→18:05)
[2019-09-22] MEDS: SENNOSIDES/DOCUSATE 8.6-50 MG 1 EACH TABLET PO SCH (10:55)
[2019-09-22] MEDS: FAMOTIDINE 20 MG TABLET PO SCH (10:55)
[2019-09-22] MEDS: PRENATAL VITAMIN W DHA CAPSULE PO SCH (10:55)
[2019-09-22] MEDS: DOCUSATE SODIUM 100 MG CAPSULE PO SCH ×2 (10:55→18:05)
--- NOTE | 2019-09-24 13:08 | Delivery Summary ---
Del Sum A-C Datetime Report Generated by CPN: 09/24/2019 13:08 DELIVERY PERSONNEL DELIVERY PERSONNEL: [id number] Delivery Doctor:: Crystal Joe MD Labor and Delivery Nurse:: Chula Pelaez RNgame protector Nurse:: Lorie Joy RN Nursery Nurse:: Lyric Moss RN Operating Room Technician/FIBERGLASS DOWEL DRAWING OPERATOR: Mery Luna, ARMORED VEHICLE OFFICER MATERNAL INFORMATION Delivery Anesthesia: None Medications After Delivery: Pitocin Drip 20 Units/1000ml NSS Meds After Delivery Comment: pitocin 20 units in 1000mL nss Estimated Blood Loss (ml): 200 Provider Comments: Called to patients room with patient carrillo, plus 3. She pushed through a small amount of contractions and delivered in direct OP position. Meconium stained fluid noted again. Infant vigorous and cord clamping delayed 30 seconds while nasal and oral suctioning. to mothers chest. Both stable. LABOR SUMMARY EDC: 09/23/2019 00:00 No. Babies in Womb: 1 Attempted: No Labor Anesthesia: IV Sedation LABOR INFORMATION Reason for Induction: Intrauterine Growth Retardation Onset of Labor: 09/20/2019 04:45 Complete Dilatation: 09/20/2019 11:32 Cervical Ripening Agents: Cervidil (Annotations: cervidil 10mg pv in posterior fornix ) Oxytocin: N/A Group B Beta Strep: negative Antibiotics # of Doses: 0 Steroids Given: None Reason Steroids Not Administered: Not Applicable MEMBRANES Membranes Rupture Method: Artificial Rupture of Membranes: 09/20/2019 11:03 Length of Rupture (hr): 0.75 Amniotic Fluid Color: Moderate Meconium Amniotic Fluid Amount: Moderate STAGES OF LABOR Stage 1 hr: 6 Stage 1 min: 47 Stage 2 hr: 0 Stage 2 min: 16 Stage 3 hr: 0 Stage 3 min: 3 Total Time in Labor hr: 7 Total Time in Labor min: 6 VAGINAL DELIVERY Episiotomy: None Laceration #1: Perineal Laceration Extension #1: First Degree Other Laceration: labial-right first degree Laceration Repair: Yes Laceration Repair Note: Both lacerations repaired with 2-0 chromic in running fashion Sponge Count Correct: Yes Sharps Count Correct: Yes CSECTION DELIVERY Primary Indication: N/A Secondary Indication: N/A CSection Incidence: N/A Labor: N/A Elective: N/A CSection Incision: N/A BABY A INFORMATION Delivery Date/Time: 09/20/2019 11:48 Method of Delivery: Vaginal Method of Delivery: Vaginal Born in Route : No : N/A Forceps: N/A Vacuum Extraction: N/A Shoulder Dystocia : No PRESENTATION/POSITION BABY A Presentation: Cephalic Cephalic Presentation: Vertex Vertex Position: Right Occipital Posterior Breech Presentation: N/A PLACENTA INFORMATION BABY A Placenta Delivery Time : 09/20/2019 11:51 Placenta Method of Delivery: Spontaneous Placenta Status: Delivered SCORES BABY A Heart Rate 1 min: >100 bpm Resp Effort 1 min: Good Cry Reflex Irritability 1 min: Cough or Sneeze or Pulls Away Muscle Tone 1 min: Active Motion Color 1 min: Blue/Pale Resuscitation Effort 1 min: Tactile Stimulation SCORE 1 MIN: 8 Heart Rate 5 min: >100 bpm Resp Effort 5 min: Good Cry Reflex Irritability 5 min: Cough or Sneeze or Pulls Away Muscle Tone 5 min: Active Motion Color 5 min: Body Runnells, Extremities Blue Resuscitation Effort 5 min: N/A SCORE 5 MIN: 9 INFORMATION BABY A Gestational Age at Delivery: 39.4 Gestational Status: Full Term- 39- 40.6 Weeks Infant Outcome : Liveborn Infant Condition : Stable Sex: Male Sex: Male IDENTIFICATION BABY A Infant Verification Date/Time: 09/20/2019 11:57 ID Band Number: [id number] Mother's Name Verified: Yes RN Verifying : B Baidy RN Additional Verifying Personnel: S Jeremy ARMORED VEHICLE OFFICER WEIGHT/LENGTH BABY A Infant Birthweight (gm): 2531 Infant Weight (lb): 5 Weight (oz): 9 Length (in): 19.00 Infant Length (cm): 48.26 CORD INFORMATION BABY A No. Cord Vessels: 3 Nuchal Cord : N/A Infant Suction: Mouth; Nose ASSESSMENT BABY A Physical Findings at Delivery: Caput Succedaneum; Molding of the Head Infant Respirations: Appears Normal Skin to Skin: Yes Per Diem Rn/ALS Called : No Infant Care By: Ander Moss RN Transferred To: Remains with Mother SIGNATURES Signature: with User ID: [email or web address] : with User ID: [email or web address]
== END 2019-09-22 21:00 | disposition home or self-care (01) | DRG 806 ==
LOC: LR 20:04 → 2S 09-20 14:20
PROVIDERS: ADMIT Obstetrics & Gynecology Gynecology; ATTEND Obstetrics & Gynecology Gynecology
PROC: 10E0XZZ Delivery of Products of Conception, External Approach (ICD-10-PCS; principal; 2019-09-20)
PROC: 0HQ9XZZ Repair Perineum Skin, External Approach (ICD-10-PCS; 2019-09-20)
DX: O36.5930 Maternal care for other known or suspected poor fetal growth, third trimester, not applicable or unspecified (principal); D62 Acute posthemorrhagic anemia; Z37.0 Single live birth; O77.0 Labor and delivery complicated by meconium in amniotic fluid; O99.334 Smoking (tobacco) complicating childbirth; O16.4 Unspecified maternal hypertension, complicating childbirth; O99.02 Anemia complicating childbirth; F17.200 Nicotine dependence, unspecified, uncomplicated; Z3A.39 39 weeks gestation of pregnancy; O70.0 First degree perineal laceration during delivery
CPT/HCPCS: 36415; 80053; 80307; 81005; 83615; 84550; 85025; 85027; 86592; 86850; 86900; 86901; 88307; J2300; J2550; J2590; J3490

== ENCOUNTER 2020-08-08 11:56 | Emergency (ER) | payer MEDICAID ==
[2020-08-08 12:20] VITALS: BP 124/77
--- NOTE | 2020-08-08 13:19 | ER Document Report ---
HPI - HPI Patient complains to provider of: fall Time Seen by Provider: 08/08/20 13:10 Pain Level: Denies Context: 30-year-old female past medical history significant for hypertension and anemia presents to the emergency room requesting a note to return to work. 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 States she went outside get some fresh air felt better but was told by her employer she would need to go home. Was told that she would need to be seen and evaluated before returning to work. She denies any current nausea, vomiting, no abdominal pain. No diarrhea. No COVID-19 exposure. Patient also states that yesterday while outside she tripped and fell hitting the left side of her face on concrete. There was no loss of consciousness. She denies any headache, nausea, vomiting. States it is tender to palpation. Denies . Has not taken any medications for symptoms. Associated Symptoms: None Exacerbated by: Denies Relieved by: Denies Similar symptoms previously: No Recently seen / treated by doctor: No - ROS Systems Reviewed and Negative: Yes All other systems reviewed and negative - CONSTITUTIONAL Constitutional: DENIES: Fever - NEURO Neurology: DENIES: Headache, Weakness, Vision blurred - REPRODUCTIVE Reproductive: DENIES: : - MUSCULOSKELETAL Musculoskeletal: DENIES: Extremity pain, Back Pain - DERM Skin Color: Normal, [place] Past Medical History - General Information source: Patient - Social History Smoking Status: Current Every Day Smoker Frequency of alcohol use: Social Drug Abuse: None Family History: Hyperlipidemia, Hypertension, Malignancy, Thyroid Disfunction - Past Medical History Cardiac Medical History: Reports: Hx Hypertension Pulmonary Medical History: Reports: Hx Asthma Renal/ Medical History: Denies: Hx Peritoneal Dialysis Musculoskeletal Medical History: Reports Hx Musculoskeletal Deformity, Reports Hx Musculoskeletal Trauma Psychiatric Medical History: Reports: Hx Anxiety - Immunizations Immunizations up to date: Yes Hx Diphtheria, Pertussis, Tetanus Vaccination: Yes Vertical Provider Document - CONSTITUTIONAL Agree With Documented VS: Yes Exam Limitations: No Limitations General Appearance: No Apparent Distress - INFECTION CONTROL TRAVEL OUTSIDE OF THE [place] IN LAST 30 DAYS: No - HEENT HEENT: Normocephalic Notes: There is tenderness with a small hematoma noted to the left lateral side of her face. No erythema. No ecchymosis. No raccoon eyes, no wood signs. - NECK Neck: Normal Inspection, Supple - RESPIRATORY Respiratory: Breath Sounds Normal, No Respiratory Distress - CARDIOVASCULAR Cardiovascular: Regular Rhythm, No Murmur, Tachycardia - GI/ABDOMEN Gastrointestinal: Abdomen Soft, Abdomen Non-Tender, No Organomegaly. negative: Abdominal Guarding, Abdominal Rebound - BACK Back: Normal Inspection. negative: CVA Tenderness-Right, CVA Tenderness-Left - MUSCULOSKELETAL/EXTREMETIES Musculoskeletal/Extremeties: FROM - NEURO Level of Consciousness: Awake, Alert, Appropriate Motor/Sensory: No Motor Deficit, No Sensory Deficit - DERM Integumentary: Warm, Dry, No Rash Course - Re-evaluation Re-evalutation: 08/08/2020 1315 Presentation of head trauma in an otherwise well-appearing patient. No focal neurologic deficits on exam, no evidence of basilar skull fracture on exam without evidence of hemotympanum, raccoon eyes, or periauricular hematoma. No papilledema. Patient is not on anticoagulation. GCS is 15. No loss of consciousness. No episodes of vomiting. Patient is therefore negative via [place] head CT criteria and CT imaging will not be obtained at this time. 08/08/20 14:05 Patient is resting comfortably no acute distress. Reviewed x-ray results with patient. Patient states she has no additional vomiting, diarrhea, abdominal pain or fever since her episode on Sunday. Patient states she is eating and drinking normally with no other complaints. Patient was counseled she can take Tylenol as needed for her head contusion. Outpatient follow-up with her primary care physician if not improving in 2 to 3 days. Patient was given strict return to the emergency room guidelines. Return for any new or worsening symptoms. All questions were answered. Patient verbalized understanding and agrees with plan of care. 08/08/20 19:12 - Vital Signs Vital signs: Temp Pulse Resp BP Pulse Ox 97.8 F 105 H 18 124/77 98 08/08/20 12:18 08/08/20 12:18 08/08/20 12:18 08/08/20 12:18 08/08/20 12:18 - Diagnostic Test Radiology reviewed: Reports reviewed Discharge - Discharge Clinical Impression: Vomiting Qualifiers: Vomiting type: unspecified Vomiting Intractability: non-intractable Nausea presence: without nausea Qualified Code(s): R11.11 - Vomiting without nausea Head trauma Qualifiers: Encounter type: initial encounter Qualified Code(s): S09.90XA - Unspecified injury of head, initial encounter Condition: Stable Disposition: HOME, SELF-CARE Instructions: Contusion ([facility]), Head Injury Precautions ([facility]), Vomiting ([facility]) Additional Instructions: Tylenol and or Motrin as needed for pain. Follow-up primary care physician if not improving in 2 to 3 days. Return to the emergency room for any new or worsening symptoms. Forms: Return to Work Referrals: DILIA DELEON CNM [NO LOCAL MD] - Follow up as needed
--- NOTE | 2020-08-08 13:55 | RADIOLOGY REPORT (SQ) ---
EXAM DESCRIPTION: FACIAL BONES IMAGES COMPLETED DATE/TIME: 08/08/2020 1:34 pm REASON FOR STUDY: injury COMPARISON: None. NUMBER OF VIEWS: Three view. TECHNIQUE: Images of the facial bones acquired. LIMITATIONS: None. FINDINGS: ORBITS: No fracture. No foreign body. SINUSES: No mucosal thickening. No air fluid levels. FACIAL BONES: No fracture. OTHER: No other significant finding. IMPRESSION: NO FOREIGN BODY OR FRACTURE OF THE FACIAL BONES. TECHNICAL DOCUMENTATION: JOB ID: [id number] 2010 [employer]- All Rights Reserved Reading location - IP/workstation name: [email or web address]-
== END 2020-08-08 14:13 | disposition home or self-care (01) ==
LOC: ER 11:56
DX: S09.90XA Unspecified injury of head, initial encounter (principal); R11.11 Vomiting without nausea; W01.198A Fall on same level from slipping, tripping and stumbling with subsequent striking against other object, initial encounter; F17.200 Nicotine dependence, unspecified, uncomplicated; I10 Essential (primary) hypertension
CPT/HCPCS: 70150; 99283